=== PATIENT | male | born 1980 ===

== ENCOUNTER 2019-02-12 08:04 | Emergency (ER) | payer OTHER ==
[~2019-02-12] VITALS: Ht 172.7 cm; Wt 90.7 kg
== END 2019-02-12 17:00 | disposition home or self-care (01) ==
LOC: ER 08:04
DX: K52.89 Other specified noninfective gastroenteritis and colitis (principal); L02.31 Cutaneous abscess of buttock; R19.7 Diarrhea, unspecified

== ENCOUNTER 2019-06-24 13:20 | Emergency (ER) | payer OTHER ==
[~2019-06-24] VITALS: Ht 175.3 cm; Wt 90.7 kg
[2019-06-24] MEDS ORDERED: CLINDAMYCIN HC300 MG PO (18:42)
[2019-06-24] MEDS ORDERED: INTESTINEX680 M1 PO (18:42)
[2019-06-24] MEDS ORDERED: DUI500 (23:38)
== END 2019-06-24 18:47 ==
LOC: ER 13:20
DX: L03.012 Cellulitis of left finger (principal); S60.47 Other superficial bite of fingers; W54.0XXS Bitten by dog, sequela

== ENCOUNTER 2019-06-28 06:04 | Emergency (ER) | payer OTHER ==
[~2019-06-28] VITALS: Ht 175.3 cm; Wt 90.7 kg
[~2019-06-28 06:04] MED LIST: CLINDAMYCIN HC300 MG PO; DUI500; INTESTINEX680 M1 PO
== END 2019-06-28 10:34 | disposition home or self-care (01) ==
LOC: ER 06:04
DX: J06.9 Acute upper respiratory infection, unspecified (principal); J04.0 Acute laryngitis